=== PATIENT | female | born 1955 | race Caucasian/White ===

== ENCOUNTER 2022-06-03 06:40 | Day surgery (SDC) | payer MEDICARE ==
[~2022-06-03] VITALS: Ht 165.1 cm; Wt 70.8 kg
[~2022-06-03 06:40] MED LIST: CYCLOPENTOLATE 1% OPHTH SOLN 2ML BTL OS SCH; FLURBIPROFEN 0.03% OPHTH SOLN 2.5 ML OS SCH; LIDOCAINE 1% SDV 5ML VIAL As Ordered ONE; LORA-753 PO; PHENYLEPHRINE 2.5% OPHTH SOL 2ML OS SCH; TETRACAINE 0.5% OPHTH SOLN 4ML OS SCH
[2022-06-03] MEDS ORDERED: LR 1,000 ML IV SCH (07:00)
[2022-06-03] MEDS ORDERED: MIDAZOLAM INJ 2MG/2ML VIAL As Ordered ONE (07:11)
[2022-06-03] MEDS ORDERED: fentaNYL 100 MCG/2 ML INJECTION As Ordered ONE (07:12)
[2022-06-03 09:10] VITALS: BP 133/76
== END 2022-06-03 09:22 | disposition home or self-care (01) ==
LOC: M SDC 06:40
PROVIDERS: ATTEND Ophthalmology
DX: H25.12 Age-related nuclear cataract, left eye (principal); N95.1 Menopausal and female climacteric states; Z79.899 Other long term (current) drug therapy; Z91.040 Latex allergy status
CPT/HCPCS: 66984; J2250; J3010; V2632

== ENCOUNTER 2022-07-01 10:25 | Day surgery (SDC) | payer MEDICARE ==
[~2022-07-01] VITALS: Ht 165.1 cm; Wt 69.7 kg
[~2022-07-01 10:25] MED LIST changes: +CYCLOPENTOLATE 1% OPHTH SOLN 2ML BTL OD SCH; -CYCLOPENTOLATE 1% OPHTH SOLN 2ML BTL OS SCH; +FLURBIPROFEN 0.03% OPHTH SOLN 2.5 ML OD SCH; -FLURBIPROFEN 0.03% OPHTH SOLN 2.5 ML OS SCH; +LR 1,000 ML IV SCH; +PHENYLEPHRINE 2.5% OPHTH SOL 2ML OD SCH; -PHENYLEPHRINE 2.5% OPHTH SOL 2ML OS SCH; +TETRACAINE 0.5% OPHTH SOLN 4ML OD SCH; -TETRACAINE 0.5% OPHTH SOLN 4ML OS SCH
[2022-07-01] MEDS ORDERED: MIDAZOLAM INJ 2MG/2ML VIAL As Ordered ONE (14:18)
[2022-07-01] MEDS ORDERED: fentaNYL 100 MCG/2 ML INJECTION As Ordered ONE (14:18)
[2022-07-01 14:38] VITALS: BP 172/80
== END 2022-07-01 14:55 | disposition home or self-care (01) ==
LOC: M SDC 10:25
PROVIDERS: ATTEND Ophthalmology
DX: H25.11 Age-related nuclear cataract, right eye (principal); Z91.040 Latex allergy status
CPT/HCPCS: 66984; J2250; J3010; V2632